=== PATIENT | male | born 1950 | race Caucasian/White ===

== ENCOUNTER 2019-06-04 09:26 | Day surgery (SDC) | payer MEDICARE ==
[2019-06-04] VITALS (12 sets, daily range): BP systolic 109–141; BP diastolic 65–88; PULSE 75–80; TEMP 98
[~2019-06-04] VITALS: Ht 170.2 cm; Wt 81.8 kg
[2019-06-04 10:26] LABS: HEMATOCRIT 51.9 % (42.0-52.0); HEMOGLOBIN 16.3 g/dl (13.5-18.0); MEAN CELL VOLUME 95 fl (80.0-100.0); MEAN CORPUSCULAR HEMOGLOBIN 30 pg (27.0-31.0); MEAN CORPUSCULAR HGB CONC 31 g/dl (33.0-37.0); MEAN PLATELET VOLUME 9.5 fl (7.4-10.4); PLATELET COUNT 309 K/mm3 (130-400); RED BLOOD COUNT 5.44 M/mm3 (4.20-5.60); REDCELL DISTRIBUTION WIDTH-CV 12.6 % (11.5-14.5)
[2019-06-04 10:30] LABS: INR 0.9 (0.8-3.0); PROTHROMBIN TIME 10.9 SECONDS (9.7-12.8)
[2019-06-04 10:33] LABS: PARTIAL THROMBOPLASTIN TIME 33.8 SECONDS (26.0-37.0)
[2019-06-04] MEDS ORDERED: CRESTOR 10MG10 MG PO (10:38)
[2019-06-04] MEDS ORDERED: BYSTOLIC10 MG PO (10:40)
[2019-06-04] MEDS ORDERED: FLOMAX 0.40.4 MG/CAP PO (10:41)
[2019-06-04] MEDS ORDERED: ANORO IH (10:42)
[2019-06-04] MEDS ORDERED: DALIRESP500 MCG PO (10:47)
[2019-06-04] MEDS ORDERED: ALBUTEROL0.83 MG/ML IH (10:49)
[2019-06-04 11:00] LABS: CALCIUM 9.8 mg/dL (8.4-10.2); CREATININE, serum 1.18 (0.66-1.25); POTASSIUM 4.6 mmol/L (3.4-5.0)
--- NOTE | 2019-06-04 13:06 | NUR ---
SEE MERGE FOR MEDICATION ADMINISTRATION TIMES AND INTRA AND POST SEDATION ASSESSMENTS. BARBOA TEST SHOWED TO BE SLUGGISH, DR. HARRINGTON NOTIFIED AND ORDERED TO PROCEED UTILIZING THE RADIAL ARTERY FOR THE [facility].
--- NOTE | 2019-06-04 18:29 | NUR ---
Pt being escorted to exit via wheelchair at this time. pt has done well during recovery, site looks good, dressed with bandaid and coban at time of departure. iv dc'd with cath intact, dressing applied. dc instructions were reviewed with no problem, patient denies questions. Pt is ambulatory in room with no problem, he has been able to eat a few crackers and drink water with no problem, he never did want to order a meal.
== END 2019-06-04 18:34 | disposition home or self-care (01) ==
LOC: COL.CAR 09:26
PROVIDERS: Internal Medicine Cardiovascular Disease
DX: I25.10 Atherosclerotic heart disease of native coronary artery without angina pectoris (principal); I10 Essential (primary) hypertension; E78.2 Mixed hyperlipidemia; I25.2 Old myocardial infarction; J44.9 Chronic obstructive pulmonary disease, unspecified; Z95.5 Presence of coronary angioplasty implant and graft; Z99.81 Dependence on supplemental oxygen; G47.33 Obstructive sleep apnea (adult) (pediatric); Z87.891 Personal history of nicotine dependence; Z88.8 Allergy status to other drugs, medicaments and biological substances; Z79.82 Long term (current) use of aspirin
CPT/HCPCS: C1769; J1644; J2250; J3010; Q9967